=== PATIENT | male | born 1985 | race Caucasian/White ===

== ENCOUNTER → 2021-12-25 14:59 | Outpatient (BNVA) | payer OTHER, SELFPAY | PROVIDERS: Visit Provider Physician Assistant Medical | DX: S80.11XA Contusion of right lower leg, initial encounter (principal); S81.811A Laceration without foreign body, right lower leg, initial encounter; W20.8XXA Other cause of strike by thrown, projected or falling object, initial encounter | CPT/HCPCS: 73600; 73620; 99203 ==

== ENCOUNTER → 2022-01-10 08:04 | Outpatient (BNVA) | payer OTHER, SELFPAY | PROVIDERS: Visit Provider Internal Medicine | DX: S82.64XA Nondisplaced fracture of lateral malleolus of right fibula, initial encounter for closed fracture (principal); W20.8XXA Other cause of strike by thrown, projected or falling object, initial encounter | CPT/HCPCS: 99213 ==

== ENCOUNTER → 2022-01-28 08:20 | Outpatient (BNVA) | payer OTHER, SELFPAY | PROVIDERS: Visit Provider Internal Medicine | DX: S82.61XD Displaced fracture of lateral malleolus of right fibula, subsequent encounter for closed fracture with routine healing (principal); W20.8XXD Other cause of strike by thrown, projected or falling object, subsequent encounter | CPT/HCPCS: 99213 ==

== ENCOUNTER 2024-03-19 10:53 | Outpatient (AMB) | payer BC, SELFPAY ==
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
[2024-03-19 11:31] VITALS: BP 102/64; PULSE 81; RESP 16; TEMP 36.7; O2SAT 97; BMI 27.4
== END 2024-03-19 12:03 | disposition home or self-care (01) ==
PROVIDERS: Visit Provider Nurse Practitioner Family
DX: G40.909 Epilepsy, unspecified, not intractable, without status epilepticus (principal); S23.29XA Dislocation of other parts of thorax, initial encounter; S06.9XAS Unspecified intracranial injury with loss of consciousness status unknown, sequela
CPT/HCPCS: 99204

== ENCOUNTER 2024-04-06 10:26 | Outpatient (AMB) | payer BC, SELFPAY ==
[2024-04-06 10:34] VITALS: BP 108/64; PULSE 68; O2SAT 98; BMI 27.9
--- NOTE | 2024-04-06 10:34 | MHC.OFFVIS ---
Vital Signs 04/06/24 10:34 Height 5 ft 5 in Weight 167 lb 8 oz BMI 27.9 BP 108/64 Blood Pressure Location Lt brachial Position Sitting Pulse 68 Pulse Source Pulse Oximeter Pulse Oximetry (%) 98 Oxygen Delivery Method Room Air Intake Visit Reasons: Solitary pulmonary nodule Allergies amoxicillin Adverse Reaction (Mild, Verified 04/08/24 10:40) rash HPI HPI Solitary pulmonary nodule: Details: John is a pleasant 38 year old, former smoker, quit 6 years ago with 15 pack year history, currently vapes with underlying GERD. He was referred by PCP for pulmonary evaluation after incidental finding of a pulmonary nodule. Recent imaging revealed 3 mm nodule of RML. He reports no prior h/o abnormal imaging. He does report a chronic cough which he attributes to GERD. He reports significantly worsening GERD symptoms over the last five years taking tums daily, previously used OTC PPI years ago without notable effect. He has not been evaluated by GI. He denies dyspnea, wheezing, chest tightness or h/o asthma. 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 He denies any pertinent family history. [facility] Medical History (Updated 04/09/24 @ 19:38 by Clemencia Mondragon NP) Epileptic seizures Acid reflux Head injury Social History (Updated 04/09/24 @ 19:43 by Clemencia Mondragon NP) Housing: House Patient Tobacco Use Status: Former Tobacco user e-Cigarette/Vaping Use: Currently Using Second Hand Smoke Exposure: No service: No Current occupational status: employed Current occupation: work for the [employer] Current occupational exposures/hazards: No Cognitive needs: No Hearing needs: No Vision needs: No Physical Exam Vital Signs: Last Vital Signs Pulse 68 04/06/24 10:34 BP 108/64 04/06/24 10:34 Pulse Ox 98 04/06/24 10:34 Oxygen Delivery Method Room Air 04/06/24 10:34 BMI result Body Mass Index 27.9 Assessment & Plan Assessment & Plan (1) Right middle lobe pulmonary nodule: Code(s): R91.1 - Solitary pulmonary nodule Category: Medical (2) Acid reflux: Code(s): K21.9 - Gastro-esophageal reflux disease without esophagitis Category: Medical Plan Recent chest CT revealed 3 mm nodule of RML. Will repeat in one year to assess stability. Patient reports chronic cough which he attributes to significant GERD. Will send to GI for evaluation. Discussed importance of discontinuing the use of vapes. If no improvements after GI evaluation and cessation of vape, will perform further evaluation of cough. All questions were answered and patient is in agreement of plan. Will follow up in one year or sooner if needed. Orders: Orders CT chest wo IV con 11 Months R91.1 - Solitary pulmonary nodule Coding Level of Care Code New Pt Level 3 (30274) Diagnoses Right middle lobe pulmonary nodule R91.1 Acid reflux K21.9
== END 2024-04-06 11:16 | disposition home or self-care (01) ==
PROVIDERS: PCP Nurse Practitioner Family; Referring Provider Nurse Practitioner Family; Visit Provider Nurse Practitioner Family
DX: R91.1 Solitary pulmonary nodule (principal); K21.9 Gastro-esophageal reflux disease without esophagitis
CPT/HCPCS: 99203

== ENCOUNTER → 2024-04-06 10:26 | Outpatient (BNVA) | payer BC, SELFPAY | PROVIDERS: PCP Nurse Practitioner Family; Referring Provider Nurse Practitioner Family; Visit Provider Nurse Practitioner Family ==

== ENCOUNTER 2024-04-08 09:49 | Outpatient (AMB) | payer BC, SELFPAY ==
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
[2024-04-08 10:05] VITALS: BP 110/68; PULSE 76; RESP 16; TEMP 36.6; O2SAT 98; BMI 28.2
== END 2024-04-08 10:53 | disposition home or self-care (01) ==
PROVIDERS: PCP Nurse Practitioner Family; Visit Provider Nurse Practitioner Family
DX: S23.29XA Dislocation of other parts of thorax, initial encounter (principal)

== ENCOUNTER → 2024-04-08 09:49 | Outpatient (BNVA) | payer BC, SELFPAY | PROVIDERS: PCP Nurse Practitioner Family; Visit Provider Nurse Practitioner Family | DX: S23.29XD Dislocation of other parts of thorax, subsequent encounter (principal) | CPT/HCPCS: 96127 ==

== ENCOUNTER 2024-04-12 09:15 | Outpatient (AMB) | payer BC, SELFPAY ==
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
[2024-04-12 09:23] VITALS: BP 122/60; PULSE 86; BMI 28.0
== END 2024-04-12 09:31 | disposition home or self-care (01) ==
PROVIDERS: PCP Nurse Practitioner Family; Referring Provider Nurse Practitioner Family; Visit Provider Surgery
DX: S23.29XA Dislocation of other parts of thorax, initial encounter (principal)
CPT/HCPCS: 99204

== ENCOUNTER → 2024-04-12 09:15 | Outpatient (BNVA) | payer BC, SELFPAY | PROVIDERS: PCP Nurse Practitioner Family; Referring Provider Nurse Practitioner Family; Visit Provider Surgery ==

== ENCOUNTER 2024-04-27 09:41 | Outpatient (AMB) | payer BC, SELFPAY ==
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
== END 2024-04-27 10:05 | disposition home or self-care (01) ==
PROVIDERS: PCP Nurse Practitioner Family; Visit Provider Surgery
DX: S29.9XXA Unspecified injury of thorax, initial encounter (principal); S23.29XA Dislocation of other parts of thorax, initial encounter
CPT/HCPCS: 99214

== ENCOUNTER → 2024-04-27 09:41 | Outpatient (BNVA) | payer BC, SELFPAY | PROVIDERS: PCP Nurse Practitioner Family; Visit Provider Surgery ==

== ENCOUNTER → 2025-05-18 08:08 | Outpatient (BNVA) | payer OTHER, SELFPAY | PROVIDERS: Visit Provider Internal Medicine | DX: S63.511A Sprain of carpal joint of right wrist, initial encounter (principal); X50.3XXA Overexertion from repetitive movements, initial encounter | CPT/HCPCS: 73110; 99202 ==

== ENCOUNTER → 2025-05-20 08:22 | Outpatient (BNVA) | payer OTHER, SELFPAY | PROVIDERS: Visit Provider Internal Medicine | DX: S63.511A Sprain of carpal joint of right wrist, initial encounter (principal); X50.3XXA Overexertion from repetitive movements, initial encounter | CPT/HCPCS: 99213 ==

== ENCOUNTER → 2025-05-27 07:54 | Outpatient (BNVA) | payer OTHER, SELFPAY | PROVIDERS: Visit Provider Internal Medicine | DX: S63.511A Sprain of carpal joint of right wrist, initial encounter (principal); X50.3XXA Overexertion from repetitive movements, initial encounter | CPT/HCPCS: 99213 ==

== ENCOUNTER → 2025-06-13 07:42 | Outpatient (BNVA) | payer OTHER, SELFPAY | PROVIDERS: PCP Family Medicine; Visit Provider Internal Medicine | DX: S63.511D Sprain of carpal joint of right wrist, subsequent encounter (principal); X50.3XXD Overexertion from repetitive movements, subsequent encounter | CPT/HCPCS: 99213 ==

== ENCOUNTER 2025-07-05 08:17 | Outpatient (REF) | payer OTHER, SELFPAY ==
--- NOTE | ~2025-07-05 | XR_ITS ---
EXAMINATION: XR WRIST NAVICULAR RIGHT HISTORY: M79.641 - Pain in right hand COMPARISON: Comparison is made with the prior examination dated 05/18/2025. FINDINGS: Four views of the right wrist, including a scaphoid view are submitted. Osseous mineralization is normal. There is new cortical irregularity involving the ulnar styloid. This could represent osseous erosions related to an inflammatory arthritis. No definite fracture is seen. The joint spaces are preserved. The soft tissues are unremarkable. XR/XR wrist RT w scaphoid IMPRESSION: Cortical irregularity involving the ulnar styloid which could be secondary to an inflammatory arthritis. Clinical correlation is recommended. Electronically signed by: Yousif Brambila MD 07/05/2025 08:51 AM EST
== END 2025-07-05 08:18 | disposition home or self-care (01) ==
LOC: HO.HOSX 08:17
PROVIDERS: PCP Family Medicine
DX: S52.611A Displaced fracture of right ulna styloid process, initial encounter for closed fracture (principal); W29.8XXA Contact with other powered hand tools and household machinery, initial encounter; Y92.69 Other specified industrial and construction area as the place of occurrence of the external cause; Y99.0 Civilian activity done for income or pay
CPT/HCPCS: 73110

== ENCOUNTER 2025-07-05 08:17 | Outpatient (AMB) | payer OTHER, SELFPAY ==
--- OUTSIDE RECORDS SUMMARY | 2025-07-05 08:21 | XMS_ITS ---
Author Name [facility] Organization Unknown Care Team Organization Name Specialty Phone Email Start Date End Da te [facility] 05/21/2022 4
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
[2025-07-05 08:37] VITALS: BMI 28.0
== END 2025-07-05 09:19 | disposition home or self-care (01) ==
LOC: HO.HOS 08:17
PROVIDERS: PCP Family Medicine
DX: S52.611A Displaced fracture of right ulna styloid process, initial encounter for closed fracture (principal)
CPT/HCPCS: 25650; 99203

== ENCOUNTER → 2025-07-05 08:19 | Outpatient (BNV) | payer OTHER, SELFPAY | PROVIDERS: PCP Family Medicine; Visit Provider Radiology Diagnostic Radiology | DX: M79.641 Pain in right hand (principal) | CPT/HCPCS: 73110 ==